=== PATIENT | male | born 1945 | race Caucasian/White ===

== ENCOUNTER 2019-07-10 09:22 | Inpatient (IN) | payer MEDICARE, MEDICAID ==
[~2019-07-10] VITALS: Ht 180.3 cm; Wt 117.9 kg
[~2019-07-10 09:22] MED LIST: AMLO5TAB9 PO; CARB100T19 PO; ESCI10TA PO; FLUD0.1T PO; LEVO75TA7 PO; LOSA100T31 PO; METO-295 PO; NIAC500T2 PO; PHYT5TAB PO; QUET50TA15 PO; ZOLP10TA6 PO
--- NOTE | 2019-07-10 09:30 | NUR ---
YINA, SENT BY PMD, C/P UPPER AND LOWER BACK PAIN S/P FALL YESTERDAY, TO ER BED 9, HOOKED TO MONITOR, CHANGED TO [facility]OSPITAL [facility], PROVIDED W WARM BLANKET, AWAITING MD ALONZO.
--- NOTE | 2019-07-10 09:40 | NUR ---
DR SAUER AT BEDSIDE
--- NOTE | 2019-07-10 10:05 | NUR ---
RADIOLOGY WHEELED OUT PATIENT TO CT
[2019-07-10 10:08] LABS: BASOPHILS % (AUTO) 0.4 % (0.0-2.0); EOSINOPHILS % (AUTO) 1.8 % (0.0-6.0); HEMATOCRIT 37 % (39-51); LYMPHOCYTES # (AUTO) 0.9 /CMM (0.8-4.8); LYMPHOCYTES % (AUTO) 8.8 % (20.0-44.0); MEAN CORPUSCULAR HGB CONC 35 g/dl (31.0-36.0); MEAN CORPUSCULAR VOLUME 93 fL (80-96); MONOCYTES # (AUTO) 0.9 /CMM (0.1-1.30); NEUTROPHILS # (AUTO) 8.2 /CMM (1.8-8.9); PLATELET COUNT (AUTO) 248 /CMM (150-450); RED BLOOD CELL COUNT(AUTO) 3.96 MIL/uL (4.5-6.0); WHITE BLOOD COUNT (AUTO) 10.3 K/uL (4.3-11.0)
[2019-07-10 10:19] LABS: POTASSIUM 3.7 mmol/L (3.5-5.1); SODIUM SERUM 132 mmol/L (136-145)
[2019-07-10 10:20] LABS: CALCIUM, SERUM 8.7 mg/dL (8.5-10.1); CARBON DIOXIDE 28 mmol/L (21-32); CHLORIDE 99 mmol/L (98-107); CREATININE 0.8 mg/dL (0.6-1.3); GLUCOSE 131 mg/dL (74-106); UREA NITROGEN, BLOOD 11 mg/dL (7-18)
--- NOTE | 2019-07-10 10:29 | NUR ---
urine collected via straight catheter
[2019-07-10 10:31] LABS: APPEARANCE,URINE Clear (CLEAR); BILIRUBIN,URINE SMALL (NEGATIVE); BLOOD, URINE Trace-intact Ery/uL (NEGATIVE); COLOR,URINE Yellow (YELLOW); KETONES,URINE Negative (NEGATIVE); LEUKOCYTE ESTERASE ,URINE Negative (NEGATIVE); NITRITE, URINE Negative (NEGATIVE); PH,URINE 5.5 (5.0-8.0); PROTEIN,URINE Negative (NEGATIVE); UGLUCOSE Negative (NEGATIVE)
[2019-07-10 10:33] LABS: BACTERIA,URINE Rare /HPF (None Seen); RBC,URINE 0-2 /HPF (0-2); SQUAMOUS EPITHELIAL CELL,UR Rare /HPF (None Seen); WBC,URINE 0-2 /HPF (0-3)
[2019-07-10 10:37] LABS: ALANINE AMINOTRANSFERASE 41 U/L (12-78); ALBUMIN 3.4 g/dL (3.4-5.0); ALKALINE PHOSPHATASE 112 U/L (46-116); ASPARTATE AMINOTRANSFERASE 34 U/L (15-37); BILIRUBIN,DIRECT 0.3 mg/dL (0.0-0.2); BILIRUBIN,TOTAL 0.7 mg/dL (0.2-1.0); TOTAL PROTEIN, SERUM 6.9 g/dL (6.4-8.2)
[2019-07-10] MEDS ORDERED: ACETAMINOPHEN ES 500 MG TABLET PO ONE (11:00)
[2019-07-10] MEDS ORDERED: ACETAMINOPHEN ES 500 MG TABLET ONE (11:02)
[2019-07-10] MEDS ORDERED: KETOROLAC TROMETHAMINE 15 MG/ML VIAL ONE (11:05)
--- NOTE | 2019-07-10 11:09 | NUR ---
PAGED EPIC ARTURO JUNIOR.
--- NOTE | 2019-07-10 11:26 | NUR ---
ROOM 320-1 M
[2019-07-10] MEDS ORDERED: KETOROLAC TROMETHAMINE INJ 30 MG/ML VIAL IV ONE (11:30)
--- NOTE | 2019-07-10 11:37 | NUR ---
REPORT GIVEN TO PAMELA OF [facility] UNIT
[2019-07-10 12:00] VITALS: BP 172/78
--- NOTE | 2019-07-10 12:10 | NUR ---
MS RN ADMITTING NOTES ADMITTED 73 Y/O, M TO UNIT VIA GURNEY ACCOMPANIED BY E.R NURSE. A/O X 4. ABLE TO MAKE NEEDS KNOWN. ON ROOM AIR, BREATHING EVEN AND UNLABORED. NO COMPLAIN OF SOB AT THIS TIME. PATIENT ORIENTED TO UNIT, ROOM AND STAFF. V/S TAKEN AND RECORDED. PATIENT REFUSED SKIN ASSESSMENT AND PICTURES BUT I WAS ABLE TO CONVINCE TO TAKE PICTURES OF SCAB ON RIGHT ARM. PATIENT WITH IV ACCESS ON RIGHT HAND #18, PATENT AND INTACT. IVF TO BE STARTED. SAFETY MEASURES INITIATED, BED PLACED IN LOW LOCKED POSITION WITH SIDE RAILS UP X 2. CALL LIGHT PLACED WITHIN REACH. WILL CONTINUE TO MONITOR.
[2019-07-10] MEDS: METOCLOPRAMIDE HCL 10 MG TABLET PO SCH ×2 (13:00→17:00)
--- NOTE | 2019-07-10 13:00 | NUR ---
MS RN NOTES PATIENT COMPLAINED OF SHARP PAIN ON LEFT CHEST. PAGED DR. ARELLANO. ORDERED ECG. I GAVE THE MORPHINE 2MG IV PRN. ON 1320 - DR. ARELLANO SEEN AND EXAMINED THE PATIENT WITH NO NEW ORDERS. PATIENT IN STABLE CONDITION WITH V/S WNL. WILL CONTINUE TO MONITOR.
[2019-07-10] MEDS ORDERED: MAG HYDROX/AL HYDROX/SIMETH 30 ML UDC PO PRN (13:30)
[2019-07-10] MEDS ORDERED: MAGNESIUM HYDROXIDE 30 ML UDC PO PRN (13:30)
[2019-07-10] MEDS ORDERED: ONDANSETRON HCL/PF 4 MG/2 ML VIAL IVP PRN (13:30)
[2019-07-10] MEDS ORDERED: Z GUARD REMEDY 2 OZ OINT TP PRN (13:30)
[2019-07-10] MEDS: IV NS 0.9% 1,000 ML IV SCH ×2 (13:38→22:22)
[2019-07-10] MEDS: MORPHINE SULFATE INJ 2 MG/ML DISP.SYRIN IV PRN ×3 (13:50→23:35)
[2019-07-10] MEDS: LOSARTAN POTASSIUM 50 MG TABLET PO SCH (14:03)
[2019-07-10] MEDS ORDERED: CLOT15CR63 TP (14:28)
[2019-07-10] MEDS ORDERED: BUSP10TA3 PO (14:28)
[2019-07-10] MEDS ORDERED: CYAN10006 IJ (14:28)
[2019-07-10] MEDS ORDERED: HYDR-4385 PO (14:28)
[2019-07-10] MEDS ORDERED: BENZ0.5T43 PO (14:28)
[2019-07-10] MEDS ORDERED: DONE10TA44 PO (14:28)
[2019-07-10] MEDS ORDERED: BUDE10.2 IH (14:28)
[2019-07-10] MEDS ORDERED: CARB200T PO (14:28)
[2019-07-10 16:00] VITALS: BP 131/57
[2019-07-10] MEDS: ACETAMINOPHEN 325 MG TABLET PO PRN (16:37)
[2019-07-10] MEDS: CARBAMAZEPINE 100 MG TAB.CHEW PO SCH (16:38)
[2019-07-10] MEDS ORDERED: QUETIAPINE FUMARATE PO SCH (18:00)
[2019-07-10] MEDS ORDERED: NIACIN EXT TAB (500MG) 500 MG TABLET.SA PO SCH (18:00)
--- NOTE | 2019-07-10 18:40 | NUR ---
MS RN CLOSING NOTES PATIENT IN BED RESTING COMFORTABLY IN MODERATE HIGH BACK REST. A/O X 4. ON RA, TOLERATING WELL WITH NO COMPLAIN OF SOB THROUGHOUT THE SHIFT. IV FLUIDS ON RIGHT HAND #18 WITH NS @100ML/HR, PATENT AND INTACT. ON KENNEY CATHETER DRAINING FREELY WITH YELLOW URINE. SAFETY MEASURES IN PLACE, BED IN LOW LOCKED POSITION WITH SIDE RAILS UP X 2. CALL LIGHT PLACED WITHIN REACH. 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
--- NOTE | 2019-07-10 19:30 | NUR ---
MS RN OPENING NOTES RECEIVED PATIENT FROM MORNING SHIFT, ALERT AND ORIENTED X 4. VERBALLY RESPONSIVE AND ABLE TO FOLLOW DIRECTIONS. BREATHING REGULAR AND UNLABORED ON ROOM AIR. RIGHT HAND G18 IV LINE INTACT AND PATENT, INFUSING WELL WITH NO BLEEDING OR S/S OF INFILTRATION/INFECTION NOTED. REFUSED SKIN ASSESSMENT, RISK AND BENEFITS EXPLAINED. NO COMPLAINTS OF PAIN/DISCOMFORT OF THE TIME. WILL CONTINUE TO MONITOR. Addendum: 07/10/19 at 2005 by ANDREA SCHULTZ RN KENNEY CATH INTACT AND PATENT DRAINING CLEAR YELLOW URINE WITH MODERATE AMOUNT ON URINARY BAG.
[2019-07-10 20:00] VITALS: BP 118/66
--- NOTE | 2019-07-10 20:58 | NUR ---
MS RN NOTES SEEN AND EXAMINED BY -UROLOGIST. DISCUSSED PATIENT CONDITION AND TREATMENT TO BE CONSIDERED. WILL CONTINUE TO MONITOR.
[2019-07-10] MEDS: FINASTERIDE (5 MG) 5 MG TABLET PO SCH (21:30)
--- NOTE | 2019-07-10 21:34 | NUR ---
MS RN NOTES STARTED ON FLOMAX 0.4MG AND PROSCAR 5MG BY MOUTH PER -UROLOGIST ORDER. WILL CONTINUE TO MONITOR.
[2019-07-10] MEDS: TAMSULOSIN 0.4 MG CAP.SR.24H PO SCH (21:59)
[2019-07-10] MEDS: ZOLPIDEM TARTRATE 5 MG TABLET PO PRN (22:16)
[2019-07-11] MEDS: MORPHINE SULFATE INJ 2 MG/ML DISP.SYRIN IV PRN ×4 (03:45→12:22)
[2019-07-11 06:06] LABS: BASOPHILS % (AUTO) 0.2 % (0.0-2.0); EOSINOPHILS % (AUTO) 4.9 % (0.0-6.0); HEMATOCRIT 36 % (39-51); HEMOGLOBIN 12.6 g/dL (13.5-17.5); LYMPHOCYTES # (AUTO) 1.3 /CMM (0.8-4.8); LYMPHOCYTES % (AUTO) 14.7 % (20.0-44.0); MEAN CORPUSCULAR HGB CONC 35 g/dl (31.0-36.0); MEAN CORPUSCULAR VOLUME 94 fL (80-96); MONOCYTES % (AUTO) 11.3 % (2.0-12.0); NEUTROPHILS % (AUTO) 68.9 % (43.0-81.0); PLATELET COUNT (AUTO) 239 /CMM (150-450); RED BLOOD CELL COUNT(AUTO) 3.89 MIL/uL (4.5-6.0); WHITE BLOOD COUNT (AUTO) 8.8 K/uL (4.3-11.0)
[2019-07-11 06:21] LABS: CALCIUM, SERUM 8.4 mg/dL (8.5-10.1); CREATININE 0.7 mg/dL (0.6-1.3); MAGNESIUM 2.1 mg/dL (1.8-2.4); PHOSPHORUS 3.2 mg/dL (2.5-4.9); POTASSIUM 3.7 mmol/L (3.5-5.1)
--- NOTE | 2019-07-11 06:35 | NUR ---
MS RN CLOSING NOTES PATIENT IN BED ALERT AND ORIENTED X 4. VERBALLY RESPONSIVE AND ABLE TO FOLLOW DIRECTIONS. BREATHING REGULAR AND UNLABORED ON ROOM AIR. RIGHT HAND G18 IV LINE INTACT AND PATENT, INFUSING WELL WITH NO BLEEDING OR S/S OF INFILTRATION/INFECTION NOTED. KENNEY CATH INTACT AND PATENT DRAINING CLEAR YELLOW URINE WITH MODERATE AMOUNT ON URINARY BAG. NO COMPLAINTS OF PAIN/DISCOMFORT OF THE TIME. BED LOW AND LOCKED ON SEMI FOWLERS POSITION. WILL ENDORSE TO MORNING SHIFT FOR AM LABS AND JOHANNA.
[2019-07-11 08:00] VITALS: BP 135/70
[2019-07-11] MEDS: AMLODIPINE BESYLATE 5 MG TABLET PO SCH (08:30)
[2019-07-11] MEDS: CARBAMAZEPINE 100 MG TAB.CHEW PO SCH ×2 (08:30→17:00)
[2019-07-11] MEDS: METOCLOPRAMIDE HCL 10 MG TABLET PO SCH ×3 (08:30→17:29)
[2019-07-11] MEDS: LOSARTAN POTASSIUM 50 MG TABLET PO SCH (08:30)
[2019-07-11] MEDS: FINASTERIDE (5 MG) 5 MG TABLET PO SCH (08:30)
[2019-07-11] MEDS: LEVOTHYROXINE SODIUM 75 MCG TABLET PO SCH (08:30)
[2019-07-11] MEDS: IV NS 0.9% 1,000 ML IV SCH (08:44)
[2019-07-11] MEDS ORDERED: FLUDROCORTISONE 0.1 MG TABLET PO SCH (09:00)
[2019-07-11] MEDS ORDERED: ESCITALOPRAM OXALATE (10 MG) 10 MG TABLET PO SCH (09:00)
[2019-07-11] MEDS ORDERED: PHYTONADIONE 5 MG TABLET PO SCH (09:00)
[2019-07-11] MEDS ORDERED: CLOTRIMAZOLE 1% CREAM 24 GM TUBE TP SCH (10:00)
[2019-07-11] MEDS ORDERED: LEVOFLOXACIN 500 MG /D5W 100ML 500 MG in PREMIX 1 EA IV SCH (12:00)
[2019-07-11] MEDS: BENZTROPINE MESYLATE (1 MG) 1 MG TABLET PO SCH (12:09)
[2019-07-11 16:00] VITALS: BP 138/68
[2019-07-11] MEDS ORDERED: PEG 3350/NA SULF,BICARB,CL/KCL 4,000 ML BOTTLE PO ONE (16:00)
[2019-07-11] MEDS: CARBAMAZEPINE 200 MG TABLET PO SCH (17:29)
[2019-07-11 20:00] VITALS: BP 121/61
--- NOTE | 2019-07-11 20:13 | NUR ---
MS RN NOTE RECEIVED PT IN STABLE CONDITION, A/O X4, CURRENTLY IN BED WATCHING TV. NO SIGNS OF SOB OR DISTRESS, NO C/O PAIN. IV IN R HAND INFILTRATED, WILL REPLACE. KENNEY IN PLACE WITH ADEQUATE URINE DRAINING. ALL CURRENT NEEDS ATTENDED TO. BED LOW, LOCKED UPPER RAILS UP, BED ALARM ON, PT INSTRUCTED TO STAY IN BED WITH VERBALIZATION OF UNDERSTANDING, AND CALL LIGHT WITHIN REACH. WILL CONT. TO MONITOR.
[2019-07-11] MEDS: TAMSULOSIN 0.4 MG CAP.SR.24H PO SCH (21:11)
[2019-07-11] MEDS: ZOLPIDEM TARTRATE 5 MG TABLET PO PRN (22:00)
[2019-07-11] MEDS: ACETAMINOPHEN 325 MG TABLET PO PRN (22:32)
[2019-07-12] MEDS: MORPHINE SULFATE INJ 2 MG/ML DISP.SYRIN IV PRN ×2 (03:10→11:44)
--- NOTE | 2019-07-12 06:17 | NUR ---
MS RN NOTE PT REMAINS IN STABLE CONDITION, A/O X4, CURRENTLY IN BED WATCHING TV. NO SIGNS OF SOB OR DISTRESS, NO C/O PAIN. IV IN R HAND #[address] S/L. KENNEY IN PLACE WITH ADEQUATE HARVEY URINE DRAINING. ALL CURRENT NEEDS ATTENDED TO. BED LOW, LOCKED UPPER RAILS UP, BED ALARM ON, PT INSTRUCTED TO STAY IN BED WITH VERBALIZATION OF UNDERSTANDING, AND CALL LIGHT WITHIN REACH. WILL CONT. TO MONITOR AND ENDORSE TO NEXT SHIFT FOR JOHANNA.
[2019-07-12 08:00] VITALS: BP 146/72
--- NOTE | 2019-07-12 08:00 | NUR ---
ms nr received on bed, awake,alert,oriented x4,not in any form of distress, respirations even and unlabored,no sob noted, lungs are diminished,abdomen soft,positive bowel sounds,denies pain at this time,all needs attended.
[2019-07-12] MEDS: FINASTERIDE (5 MG) 5 MG TABLET PO SCH (08:37)
[2019-07-12] MEDS: DONEPEZIL 5 MG TABLET PO SCH (08:37)
[2019-07-12] MEDS: BENZTROPINE MESYLATE (1 MG) 1 MG TABLET PO SCH (08:37)
[2019-07-12] MEDS: CARBAMAZEPINE 100 MG TAB.CHEW PO SCH ×2 (08:37→17:21)
[2019-07-12] MEDS: busPIRone 5 MG TABLET PO SCH (08:38)
[2019-07-12] MEDS: AMLODIPINE BESYLATE 5 MG TABLET PO SCH (08:38)
[2019-07-12] MEDS: METOCLOPRAMIDE HCL 10 MG TABLET PO SCH ×3 (08:39→17:21)
[2019-07-12] MEDS: LOSARTAN POTASSIUM 50 MG TABLET PO SCH (08:39)
[2019-07-12] MEDS: CARBAMAZEPINE 200 MG TABLET PO SCH ×2 (08:42→17:21)
[2019-07-12] MEDS: LEVOTHYROXINE SODIUM 75 MCG TABLET PO SCH (08:42)
[2019-07-12] MEDS: FLUTICASONE/VILANTEROL 1 EACH BLST.W.DEV IH SCH (08:48)
--- NOTE | 2019-07-12 09:00 | NUR ---
ms [place] breakfast served,due meds given,tolerated well.
[2019-07-12 09:59] LABS: BASOPHILS % (AUTO) 0.5 % (0.0-2.0); EOSINOPHILS % (AUTO) 2.5 % (0.0-6.0); HEMATOCRIT 39 % (39-51); HEMOGLOBIN 13.4 g/dL (13.5-17.5); LYMPHOCYTES # (AUTO) 1.1 /CMM (0.8-4.8); LYMPHOCYTES % (AUTO) 12.9 % (20.0-44.0); MEAN CORPUSCULAR HGB CONC 34 g/dl (31.0-36.0); MEAN CORPUSCULAR VOLUME 94 fL (80-96); MONOCYTES # (AUTO) 0.9 /CMM (0.1-1.30); MONOCYTES % (AUTO) 10.7 % (2.0-12.0); NEUTROPHILS # (AUTO) 6.5 /CMM (1.8-8.9); NEUTROPHILS % (AUTO) 73.4 % (43.0-81.0); PLATELET COUNT (AUTO) 253 /CMM (150-450); RED BLOOD CELL COUNT(AUTO) 4.17 MIL/uL (4.5-6.0); WHITE BLOOD COUNT (AUTO) 8.8 K/uL (4.3-11.0)
[2019-07-12 10:08] LABS: BILIRUBIN,TOTAL 0.6 mg/dL (0.2-1.0); CALCIUM, SERUM 8.3 mg/dL (8.5-10.1); CREATININE 0.7 mg/dL (0.6-1.3); MAGNESIUM 2.1 mg/dL (1.8-2.4); PHOSPHORUS 2.6 mg/dL (2.5-4.9); POTASSIUM 3.4 mmol/L (3.5-5.1); TOTAL PROTEIN, SERUM 6.8 g/dL (6.4-8.2)
[2019-07-12] MEDS ORDERED: POTASSIUM CHLORIDE 20 MEQ TAB.PRT.SR PO ONE (11:00)
--- NOTE | 2019-07-12 11:00 | NUR ---
ms rn was seen by bhavik osuna w/ orders made and carired out.all needs attended.
[2019-07-12] MEDS: ENSURE ENLIVE 237 ML LIQUID (VANILLA) PO SCH ×2 (11:30→18:39)
--- NOTE | 2019-07-12 12:30 | NUR ---
ms rn was seen by shane osuna ,no order at this time.
[2019-07-12] MEDS: LEVOFLOXACIN (500MG) 500 MG TABLET PO SCH (13:40)
[2019-07-12 16:00] VITALS: BP 136/72
--- NOTE | 2019-07-12 18:54 | NUR ---
ms rn on bed, no distress noted,all needs attended.
--- NOTE | 2019-07-12 19:00 | NUR ---
MS RN NOTE RECEIVED PT IN STABLE CONDITION A/O X3, CURRENTLY WATCHING TV. NO SIGNS OF SOB OR DISTRESS, STATES THAT PAIN IS TOLERABLE AT THIS TIME. IV IN R HAND IN PLACE S/L. KENNEY IN PLACE WITH ADEQUATE URINE DRAINING. ALL CURRENT NEEDS ATTENDED TO. BED LOW, LOCKED, UPPER RAILS UP, BED ALARM ON, AND CALL LIGHT WITHIN REACH. PT INSTRUCTED TO STAY IN BED, AND USE CALL LIGHT WHEN IN NEED OF ASSISTANCE, PT VERBALIZES UNDERSTANDING. WILL CONT. TO MONITOR.
[2019-07-12 20:00] VITALS: BP 128/67
[2019-07-12] MEDS: TAMSULOSIN 0.4 MG CAP.SR.24H PO SCH (21:06)
[2019-07-12] MEDS: ZOLPIDEM TARTRATE 5 MG TABLET PO PRN (22:08)
[2019-07-13] MEDS: MORPHINE SULFATE INJ 2 MG/ML DISP.SYRIN IV PRN ×2 (05:27→10:12)
[2019-07-13 06:29] LABS: CREATININE 0.6 mg/dL (0.6-1.3); PHOSPHORUS 2.9 mg/dL (2.5-4.9); POTASSIUM 3.6 mmol/L (3.5-5.1)
[2019-07-13 06:30] LABS: BASOPHILS % (AUTO) 0.3 % (0.0-2.0); EOSINOPHILS % (AUTO) 2.8 % (0.0-6.0); HEMATOCRIT 35 % (39-51); HEMOGLOBIN 12.2 g/dL (13.5-17.5); LYMPHOCYTES # (AUTO) 1.2 /CMM (0.8-4.8); LYMPHOCYTES % (AUTO) 13.7 % (20.0-44.0); MEAN CORPUSCULAR HGB CONC 35 g/dl (31.0-36.0); MEAN CORPUSCULAR VOLUME 94 fL (80-96); NEUTROPHILS # (AUTO) 6.5 /CMM (1.8-8.9); NEUTROPHILS % (AUTO) 72.2 % (43.0-81.0); PLATELET COUNT (AUTO) 254 /CMM (150-450); RED BLOOD CELL COUNT(AUTO) 3.74 MIL/uL (4.5-6.0); WHITE BLOOD COUNT (AUTO) 8.9 K/uL (4.3-11.0)
--- NOTE | 2019-07-13 06:35 | NUR ---
MS RN NOTE PT REMAINS IN STABLE CONDITION A/O X3, CURRENTLY WATCHING TV. NO SIGNS OF SOB OR DISTRESS, NO C/O PAIN. IV IN R HAND IN PLACE S/L. KENNEY IN PLACE WITH 900 ML OUTPUT. ALL CURRENT NEEDS ATTENDED TO. BED LOW, LOCKED, UPPER RAILS UP, BED ALARM ON, AND CALL LIGHT WITHIN REACH. PT INSTRUCTED TO STAY IN BED, AND USE CALL LIGHT WHEN IN NEED OF ASSISTANCE, PT VERBALIZES UNDERSTANDING. WILL CONT. TO MONITOR AND ENDORSE TO NEXT SHIFT FOR JOHANNA.
[2019-07-13 08:00] VITALS: BP 141/75
--- NOTE | 2019-07-13 08:00 | NUR ---
MS RN RECEIVED ON BED, AWAKE,ALERT,ORIENTED X4,NOT IN ANY FORM OF DISTRESS,RESPIRATIONS EVEN AND UNLABORED,NO SOB NOTED, KENNEY TO GRAVITY, DENIES PAIN AT THIS ITME, HEPLOCK LEAKING, WILL REINSERT IV LATER,ALL NEEDS ATTENDED.
[2019-07-13] MEDS: METOCLOPRAMIDE HCL 10 MG TABLET PO SCH ×2 (09:19→12:56)
[2019-07-13] MEDS: BENZTROPINE MESYLATE (1 MG) 1 MG TABLET PO SCH (09:19)
[2019-07-13] MEDS: CARBAMAZEPINE 200 MG TABLET PO SCH (09:20)
[2019-07-13] MEDS: FINASTERIDE (5 MG) 5 MG TABLET PO SCH (09:20)
[2019-07-13] MEDS: LOSARTAN POTASSIUM 50 MG TABLET PO SCH (09:20)
[2019-07-13] MEDS: busPIRone 5 MG TABLET PO SCH (09:20)
[2019-07-13] MEDS: CARBAMAZEPINE 100 MG TAB.CHEW PO SCH (09:20)
[2019-07-13] MEDS: DONEPEZIL 5 MG TABLET PO SCH (09:20)
[2019-07-13 09:21] VITALS: BP 141/75
[2019-07-13] MEDS: AMLODIPINE BESYLATE 5 MG TABLET PO SCH (09:21)
[2019-07-13] MEDS: LEVOTHYROXINE SODIUM 75 MCG TABLET PO SCH (09:23)
--- NOTE | 2019-07-13 09:30 | NUR ---
MS [employer] BREAKFAST SERVED,DUE MEDS GIVEN,TOLERATED WELL.
[2019-07-13] MEDS: ENSURE ENLIVE 237 ML LIQUID (VANILLA) PO SCH (09:32)
[2019-07-13] MEDS: FLUTICASONE/VILANTEROL 1 EACH BLST.W.DEV IH SCH (09:35)
--- NOTE | 2019-07-13 10:00 | NUR ---
MS RN NEW IV INSERTED AT RIGHT HAND G 20 W/ GOOD VENOUS RETURN, MORPHINE 2 MG IV FOP PAIN 06/20 AND BEFORE PT WILL DO EXERCISE.
[2019-07-13] MEDS ORDERED: FINA5TAB3 PO (10:54)
[2019-07-13] MEDS ORDERED: LEVO500T2 PO (10:54)
[2019-07-13] MEDS ORDERED: TAMS-12 PO (10:54)
--- NOTE | 2019-07-13 12:31 | NUR ---
MS RN WAS SEEN BY [employer], WILL BE DISCHARGE TODAY TO [facility].
[2019-07-13] MEDS: LEVOFLOXACIN (500MG) 500 MG TABLET PO SCH (12:51)
--- NOTE | 2019-07-13 13:00 | NUR ---
ms rn patient ready for d/c in [facility], refused to take picture at right arm, report given to snf rn.
--- NOTE | 2019-07-13 14:00 | NUR ---
ms rn transferred to snf via, ambulance,no distress noted.
== END 2019-07-13 14:15 | DRG 394 ==
LOC: ER 09:36 → MED 11:37
PROVIDERS: ADMIT Internal Medicine; ATTEND Internal Medicine
DX: K62.89 Other specified diseases of anus and rectum (principal); E87.1 Hypo-osmolality and hyponatremia; N20.0 Calculus of kidney; I10 Essential (primary) hypertension; E78.5 Hyperlipidemia, unspecified; K21.9 Gastro-esophageal reflux disease without esophagitis; F32.9 Major depressive disorder, single episode, unspecified; F41.9 Anxiety disorder, unspecified; E03.9 Hypothyroidism, unspecified; Z79.899 Other long term (current) drug therapy; R29.6 Repeated falls; F03.90 Unspecified dementia, unspecified severity, without behavioral disturbance, psychotic disturbance, mood disturbance, and anxiety; K44.9 Diaphragmatic hernia without obstruction or gangrene; K40.20 Bilateral inguinal hernia, without obstruction or gangrene, not specified as recurrent; Z68.36 Body mass index [BMI] 36.0-36.9, adult; E66.9 Obesity, unspecified; D64.9 Anemia, unspecified; I73.9 Peripheral vascular disease, unspecified; E86.1 Hypovolemia; W19.XXXA Unspecified fall, initial encounter; Y92.009 Unspecified place in unspecified non-institutional (private) residence as the place of occurrence of the external cause; D63.8 Anemia in other chronic diseases classified elsewhere
CPT/HCPCS: 36415; 70450-TC; 80048-TC; 80053-TC; 80076-TC; 81000-TC; 83735-TC; 84100-TC; 84443-TC; 84484-TC; 85025-TC; 85730-TC; 87081-TC; 87086-TC; 97116-TC; 97530-TC; A4216; G0378; J1885; J1956; J2270; J7030; J8597